=== PATIENT | male | born 1995 | race Two or more races ===

== ENCOUNTER 2020-07-14 16:42 | Emergency (ER) | payer BC ==
[~2020-07-14] VITALS: Ht 180.3 cm; Wt 122.5 kg
--- NOTE | 2020-07-14 16:42 | NUR ---
PT BIB SELF C/O FACIAL PAIN, POSSIBLE BROKEN NOSE S/P HEAD BUTT WHILE PLAYING RUGBY. PT IS AAOX4, NOT IN RESPIRATORY DISTRESS, V/S STABLE, KEPT RESTED AND COMFORTABLE. WILL CONTINUE TO MONITOR.
[2020-07-14 18:07] VITALS: BP 140/80
--- NOTE | 2020-07-14 18:13 | NUR ---
SEEN AND EXAMINED BY ISELA QUIÑONES
[2020-07-14] MEDS ORDERED: IBUPROFEN 600 MG TABLET ONE (18:28)
[2020-07-14] MEDS ORDERED: IBUPROFEN 400 MG TABLET ONE (18:29)
[2020-07-14] MEDS: IBUPROFEN 400 MG TABLET PO ONE (18:31)
--- NOTE | 2020-07-14 18:32 | NUR ---
IV LINE ESTABLISHED BLOOD DRAWN AND SENT TO LAB.
--- NOTE | 2020-07-14 18:52 | NUR ---
PT IS WHEELED TO CT SCAN VIA [facility].
[2020-07-14] MEDS ORDERED: IBUP-1957 PO (19:26)
== END 2020-07-14 19:45 | disposition home or self-care (01) ==
LOC: ER 16:46
DX: S00.33XA Contusion of nose, initial encounter (principal); W50.0XXA Accidental hit or strike by another person, initial encounter; Y93.89 Activity, other specified; Y92.89 Other specified places as the place of occurrence of the external cause; Y99.8 Other external cause status
CPT/HCPCS: 70486-TC